=== PATIENT | female | born 1950 | race American Indian/Alaskan Native ===

== ENCOUNTER 2017-10-01 13:30 | Emergency (ER) | payer MEDICARE | END 2017-10-01 13:35 | disposition left against medical advice (07) | LOC: ED 13:30 | DX: I10 Essential (primary) hypertension (principal); Z53.21 Procedure and treatment not carried out due to patient leaving prior to being seen by health care provider ==

== ENCOUNTER 2020-06-12 20:44 | Emergency (ER) | payer MEDICARE | END 2020-06-12 22:00 | disposition left against medical advice (07) | LOC: ED 20:44 | DX: R06.02 Shortness of breath (principal); R06.00 Dyspnea, unspecified; Z53.21 Procedure and treatment not carried out due to patient leaving prior to being seen by health care provider ==